=== PATIENT | male | born 1955 | race Caucasian/White ===

== ENCOUNTER 2019-01-12 01:37 | Outpatient (CLI) | payer MEDICARE, SELFPAY ==
[2019-01-12 11:10] LABS: ALT 28 U/L (12-78); AST 19 U/L (15-37); Albumin 3.8 g/dL (3.4-5.0); Alkaline Phosphatase 49 U/L (46-116); Anion Gap 7.6 mmol/L (3-11); BUN 16 mg/dL (7-18); Bilirubin, Total 0.7 mg/dL (0.2-1.0); CO2 28.4 mmol/L (21.0-32.0); CREATININE 1.03 mg/dL (0.70-1.30); Calcium 8.8 mg/dL (8.5-10.1); Calculated LDL 129; Chloride 103 mmol/L (98-107); Cholesterol 184 mg/dL (50-200); Glucose 96 mg/dL (70-100); HDL Cholesterol 37 mg/dL (40-60); Potassium 4.7 mmol/L (3.5-5.1); Sodium 139 mmol/L (136-145); Triglyceride 91 mg/dL (30-150)
== END 2019-01-12 01:57 ==
PROVIDERS: PCP Family Medicine; Visit Provider Family Medicine
DX: Z13.6 Encounter for screening for cardiovascular disorders (principal)
CPT/HCPCS: 36415; 80053; 80061; 83721

== ENCOUNTER 2020-01-27 03:45 | Outpatient (CLI) | payer MEDICARE, SELFPAY ==
[2020-01-27 08:01] LABS: HCT 50.8 % (40.0-50.0); HGB 16.8 g/dL (13.5-17.5); Mean Corp. HGB Concentration 33.1 g/dL (32.0-36.0); Mean Corpuscular Hemoglobin 33.7 pg (27.0-33.0); Mean Corpuscular Volume 101.8 fL (80-95); Mean Platelet Volume 9.2 fL (8.0-11.0); Platelet Count 244 x1000/uL (130-400); RBC 4.99 m/cumm (4.50-6.00); White Blood Cell Count 5.57 k/cumm (4.4-10.8)
[2020-01-27 09:52] LABS: ALT 32 U/L (16-63); AST 24 U/L (15-37); Albumin 4.1 g/dL (3.4-5.0); Alkaline Phosphatase 49 U/L (46-116); Anion Gap 8.8 mmol/L (3-11); BUN 17 mg/dL (7-18); Bilirubin, Total 0.6 mg/dL (0.2-1.0); CO2 29.2 mmol/L (21.0-32.0); CREATININE 1.12 mg/dL (0.70-1.30); Calcium 8.8 mg/dL (8.5-10.1); Chloride 102 mmol/L (98-107); Glucose 106 mg/dL (74-106); Potassium 4.7 mmol/L (3.5-5.1); Sodium 140 mmol/L (136-145); Total Protein 7.5 g/dL (6.4-8.2)
[2020-01-27 12:32] LABS: Calculated LDL 158 mg/dL (<100); Cholesterol 221 mg/dL (<200); HDL Cholesterol 44 mg/dL (40-60); Triglyceride 95 mg/dL (<150)
[2020-01-30 10:25] LABS: PSA, Screening 0.5 ng/mL (0.0-4.5)
== END 2020-01-27 04:05 ==
PROVIDERS: PCP Family Medicine; Visit Provider Family Medicine
DX: N52.9 Male erectile dysfunction, unspecified (principal); Z80.42 Family history of malignant neoplasm of prostate; Z12.5 Encounter for screening for malignant neoplasm of prostate
CPT/HCPCS: 36415; 80053; 80061; 84153; 85027

== ENCOUNTER 2021-01-28 03:06 | Outpatient (CLI) | payer MEDICARE, SELFPAY ==
[2021-01-28 12:40] LABS: Calculated LDL 144 mg/dL (<100); Cholesterol 193 mg/dL (<200); HDL Cholesterol 36 mg/dL (40-60); Triglyceride 69 mg/dL (<150)
== END 2021-01-28 03:07 | disposition home or self-care (01) ==
LOC: LOS 03:06
PROVIDERS: PCP Nurse Practitioner Family; Visit Provider Nurse Practitioner Family
DX: N52.9 Male erectile dysfunction, unspecified (principal); N40.0 Benign prostatic hyperplasia without lower urinary tract symptoms
CPT/HCPCS: 36415; 80061; 84154

== ENCOUNTER 2022-02-18 02:47 | Outpatient (CLI) | payer MEDICARE, SELFPAY ==
[2022-02-18 13:08] LABS: Calculated LDL 106 mg/dL (<100); Cholesterol 160 mg/dL (<200); HDL Cholesterol 39 mg/dL (40-60); Triglyceride 75 mg/dL (<150)
[2022-02-19 18:34] LABS: PSA, Screening 0.5 ng/mL (<=4.5)
== END 2022-02-18 02:48 | disposition home or self-care (01) ==
LOC: LOS 02:47
PROVIDERS: PCP Nurse Practitioner Family; Visit Provider Nurse Practitioner Family
DX: E78.5 Hyperlipidemia, unspecified (principal); R39.11 Hesitancy of micturition; N40.1 Benign prostatic hyperplasia with lower urinary tract symptoms; N52.9 Male erectile dysfunction, unspecified; Z12.5 Encounter for screening for malignant neoplasm of prostate
CPT/HCPCS: 36415; 80061; 84153

== ENCOUNTER 2022-04-11 16:23 | Outpatient (REF) | payer MEDICARE, SELFPAY ==
[2022-04-13 10:56] LABS: Campylobacter PCR Negative (Negative); Salmonella PCR Negative (Negative); Shiga Toxin PCR Negative (Negative); Shigella/Enteroinvasive Ecoli Negative (Negative)
== END 2022-04-11 16:24 | disposition home or self-care (01) ==
LOC: LBN 16:23
PROVIDERS: PCP Nurse Practitioner Family; Visit Provider Nurse Practitioner Family
DX: R19.7 Diarrhea, unspecified (principal)
CPT/HCPCS: 87505; 87177

== ENCOUNTER 2023-02-09 03:05 | Outpatient (CLI) | payer MEDICARE, SELFPAY ==
[2023-02-09 13:03] LABS: Calculated LDL 131 mg/dL (<100); Cholesterol 187 mg/dL (<200); HDL Cholesterol 39 mg/dL (40-60); Triglyceride 88 mg/dL (<150)
[2023-02-10 10:13] LABS: PSA, Screening 0.5 ng/mL (<=4.5)
== END 2023-02-09 03:06 | disposition home or self-care (01) ==
LOC: LOS 03:05
PROVIDERS: PCP Nurse Practitioner Family; Visit Provider Nurse Practitioner Family
DX: N40.1 Benign prostatic hyperplasia with lower urinary tract symptoms (principal); E78.5 Hyperlipidemia, unspecified
CPT/HCPCS: 36415; 80061; 84153

== ENCOUNTER 2023-12-29 05:11 | Outpatient (CLI) | payer MEDICARE, SELFPAY ==
[2023-12-29 12:31] LABS: Calculated LDL 99 mg/dL (<100); Cholesterol 156 mg/dL (<200); HDL Cholesterol 42 mg/dL (40-60); Triglyceride 76 mg/dL (<150)
[2023-12-29 13:19] LABS: Hemoglobin A1C 5.5 % (<5.7)
[2023-12-29 18:26] LABS: PSA, Screening 0.7 ng/mL (<=6.5)
== END 2023-12-29 05:12 | disposition home or self-care (01) ==
LOC: LOS 05:11
PROVIDERS: PCP Nurse Practitioner Family; Visit Provider Nurse Practitioner Family
DX: E78.5 Hyperlipidemia, unspecified (principal); N40.1 Benign prostatic hyperplasia with lower urinary tract symptoms; Z13.1 Encounter for screening for diabetes mellitus
CPT/HCPCS: 36415; 80061; 84153; 83036

== ENCOUNTER 2024-01-08 08:49 | Day surgery (SDC) | payer MEDICARE, SELFPAY ==
[2024-01-08 09:20] VITALS: BP 110/65; PULSE 61; RESP 16; TEMP 36.2; O2SAT 97
--- NOTE | 2024-01-08 09:40 | ANES.PREOP_ITS ---
General Info Date of Service Date Performed: 01/08/24 Height: 5 ft 10 in Weight: 84.368 kg Body Mass Index (BMI): 26.6 Surgical Procedure: Operation Date: 01/08/24 11:40 Proposed Procedure Side Surgeon p Cataract Extraction with IOL Implant Right Laci Holm MD Meds Allergies and Home Medications Allergies Allergy/AdvReac Type Severity Reaction Status Date / Time No Known Allergies Allergy Verified 01/08/24 10:03 Home Medication Medication Instructions Recorded multivitamin (Daily Multi-Vitamin 1 ea PO DAILY 08/21/14 tablet) ascorbic acid (vitamin C) 500 mg 2,000 mg PO DAILY 08/15/16 tablet (Vitamin C) cholecalciferol (vitamin D3) 50 2,000 unit PO DAILY 08/15/16 mcg (2,000 unit) capsule (D3-2000) coenzyme Q10 100 mg capsule 100 mg PO DAILY 01/11/21 levocetirizine 5 mg tablet (Xyzal) 5 mg PO DAILY 01/11/21 magnesium citrate 150 ml PO DAILY 12/25/23 simvastatin 20 mg tablet 20 mg PO DAILY #90 tabs 12/25/23 tadalafil 5 mg tablet 5 mg PO DAILY #30 tabs 12/25/23 tamsulosin 0.4 mg capsule (Flomax) 0.4 mg PO DAILY #90 caps 12/25/23 Current Visit Medications: Current Medications Generic Name Dose Route Start Last Admin Trade Name Freq PRN Reason Stop Dose Admin Acetaminophen 1,000 mg 01/08/24 06:00 Acetaminophen 500 Mg Tab PO 02/07/24 05:59 Q4H PRN PRN Balanced Salt Solution 500 ml 01/08/24 06:00 Balanced Salt Soln.-Plus 500 Ml Bag OP 02/07/24 05:59 DIRECTED MEET Miscellaneous Medication 0 ml 01/08/24 06:00 Prednisolone 1%, Moxifloxacin 0.5%, Bromfenac 0.09% 5ml Btl OD 02/07/24 05:59 DIRECTED MEET Miscellaneous Medication 0 ml 01/08/24 06:00 Tropicam./Phenyleph. (1/2.5%) 10 Ml Btl OD 02/07/24 05:59 DIRECTED MEET Tetracaine HCl 0 ml 01/08/24 06:00 Tetracaine 0.5% 4 Ml Btl OD 02/07/24 05:59 DIRECTED [facility] Active Problems Active Problems: Problem Status Onset Code Cortical age-related cataract, right eye H25.011 Nuclear age-related cataract, right eye H25.11 Left leg weakness R29.898 Hyperlipidemia E78.5 BPH (benign prostatic hyperplasia) N40.0 Macrocytosis without anemia D75.89 Erectile dysfunction N52.9 Tubular adenoma D36.9 Medical History Medical History Tubular adenoma Surgical History Surgical History Colonoscopy - MAC (12/18/17) L5-S1 Laminectomy Open Carpal Tunnel release B/L Tobacco Smoking/Tobacco Use Status: Former Tobacco Use Passive smoking exposure: No Second hand exposure: No Alcohol Alcohol Intake: former Substance Use Substance use: Daily Substance use type: marijuana Vital Signs and Lab Results Vital Signs Most Recent Vital Signs in EMR: Temp Pulse Resp BP Pulse Ox 36.2 C L 61 16 110/65 97 01/08/24 09:20 01/08/24 09:20 01/08/24 09:20 01/08/24 09:20 01/08/24 09:20 Lab Results Blood Type / Crossmatch: No Data to Display Complete Blood Count: No Data to Display Complete Metabolic Panel: Hemoglobin A1c 5.5 % (<5.7) 12/29/23 09:16 Liver Function Panel: No Data to Display Coagulation Panel: No Data to Display Cardiac Panel: No Data to Display Arterial Blood Gas: No Data to Display Venous Blood Gas: No Data to Display Pancreas Panel: No Data to Display Thyroid Panel: No Data to Display Infectious Disease: No Data to Display Blood Cultures: No Data to Display Toxicology Panel: No Data to Display Anesthesia Assessment and Plan Anesthesia History Personal History: No History of Anesthesia Complications Family History: No Family History of Anesthesia Complications Exercise Tolerance Exercise Tolerance: Metabolic Equivalents>4 Pertinent Negatives Pertinent Negatives: No Symptoms of GERD, No Major Cardiovascular Symptoms or Complaints, No Major Pulmonary Symptoms or Complaints and No History of CVA/TIA Cardiac & Pulmonary Exam Cardiac Exam: Normal S1/S2 Heart Sounds Pulmonary Exam: Clear Bilateral Breath Sounds Implantable Cardiac Device Does patient have a Pacemaker or an ICD?: No Airway Exam Known Difficult Airway: No Mallampati Class: 2 Mouth Opening: Normal (> 3cm) Thyromental Distance: Greater than 3 cm Neck Range of Motion: Full ROM Neck Circumference: Normal Teeth Condition: Normal Dentition ASA Classification ASA Score: ASA 2 Emergency Case?: No NPO Status NPO Status: NPO Clears >2 hours, Solids >8 hours Anesthesia Plan Resuscitation Status: Full Code Anesthesia Technique: MAC Anesthesia Airway Planned: Natural Airway Monitors Used: Standard Monitors
[2024-01-08 10:26] VITALS: BMI 26.6
[2024-01-08] MEDS: Povidone-Iodine Ophth 30 ML BTL (10:50)
[2024-01-08] MEDS: Tetracaine 0.5% 4 ML BTL OD (10:50)
[2024-01-08] MEDS: Duovisc Viscoelastic System EACH 1 EACH (10:57)
[2024-01-08] MEDS: Lidocaine 1% Pres-Free 5 ML VIAL (10:57)
[2024-01-08] MEDS: Balanced Salt Soln.-PLUS 500 ML BAG OP (10:57)
[2024-01-08 11:17] VITALS: BP 110/65; PULSE 61; RESP 16; TEMP 36.2; O2SAT 97
--- NOTE | 2024-01-08 11:17 | ROE_ITS ---
Date of service: 01/08/24 Time of Service: 11:18 Operative Note Operative Note DATE OF PROCEDURE: 02/25/21 PRE-OP DIAGNOSIS: Nuclear/cortical cataract, right eye POST-OP DIAGNOSIS: same PROCEDURE: Cataract extraction using phacoemulsification with intraocular lens implant, right eye SURGEON: Laci Holm ANESTHESIA TYPE: Local By Surgeon and MAC Refer to Anesthesia Record ESTIMATED BLOOD LOSS: 0 PATHOLOGY: none sent COMPLICATIONS: None Patient was transported to: same day Patient's condition: stable Implants: Te[employer]j Tecnis Eyhance [id number] Indications: Progressive visual loss due to cataract, right eye Procedure Description: CATARACT SURGERY OPERATIVE REPORT PREOPERATIVE DIAGNOSIS: 1. Nuclear/cortical cataract, right eye POSTOPERATIVE DIAGNOSIS: Same OPERATION: 1. Cataract extraction using phacoemulsification with posterior chamber intraocular lens implant, right eye. IOL: IOL Nut Process Helper/Model: Tej [employer] Tej Tecnis Eyhance DIB00 IOL Power: + 19.5 diopters IOL Serial Number: [id number] Optic Diameter: 6.0mm Haptic/Overall Diameter: 13.0mm PHACO INFO: YunierCaliper Life Sciencesurion Vision System with OZil and Active Fluidics Cumulative Dispersed Energy (CDE): 3.82 seconds SURGEON: Laci Holm MD, GEORGE ANESTHESIA: Monitored Anesthesia Care (MAC), with local sub-tenon's anesthetic infiltration COMPLICATIONS: None SPECIMENS: None INDICATIONS FOR PROCEDURE: The patient is a 68-year-old male with history of diminished visual acuity in his right eye secondary to the development of nuclear/cortical cataract. He is significantly symptomatic that he desires cataract surgery and attempt to improve and maximize his vision. The option of cataract surgery was offered to the patient and he wished to proceed. See office notes for detailed information. PROCEDURE: The correct surgical eye was identified and marked as the right eye and the pupil was dilated in the preoperative area using mydriatics and cycloplegics. The dilated pupil size was 7.0 mm. Oral sedation was administered in the form of an Imprimis MKO Melt (midazolam 3mg/ketamine 25mg/ondansetron 2mg).. The patient was brought to the operating room where cardiopulmonary monitoring was instituted and surgical time-out was performed, confirming the correct operative eye and IOL power. Topical anesthesia was administered and ophthalmic povidone-iodine 5% was instilled into the conjunctival fornices. The daniel-ocular area was prepped with Betadine 10% solution and draped in the usual sterile fashion for intraocular surgery, including an aperture drape. A Tegaderm transparent film dressing was cut in half and used to cover the lashes and lid margins. Care was taken to sequester the lashes and lid margins under the Tegaderm dressing. A lid speculum was placed between the lids of the operative eye and the Yunier LuxOR Revalia operating microscope was maneuvered into position. Scott scissors were then used to make a conjunctival buttonhole approximately 6mm posterior to the limbus in the inferonasal quadrant. Blunt dissection was carried out to expose bare sclera, and a blunt-tipped sub-tenon?s anesthesia cannula was introduced and passed posteriorly along the globe where non- preserved plain lidocaine was injected into posterior sub-Tenon?s space. A sideport knife was used to make a paracentesis port. Intraocular phenylephrine/lidocaine was injected into the anterior chamber. The anterior chamber was filled with viscoelastic. A keratome knife was used to construct a 2-plane clear corneal tunnel extending 2.0mm into clear cornea. A flap was raised on the anterior capsule and capsulorhexis forceps were used to complete a continuous curvilinear capsulorhexis of 5.0 mm. Balanced salt solution was then used to perform cortical cleaving hydrodissection and nuclear hydrodelineation until the lens could be freely rotated within the capsular bag. The lens nucleus was then disassembled and removed within the capsular bag and iris plane using phacoemulsification. Residual cortical material was removed using the I/A handpiece. The posterior capsule was carefully polished to remove as much residual lens epithelial cells as safely possible. The capsular bag was then inflated and the anterior chamber deepened with cohesive viscoelastic. The lens implant described above was inserted into the capsular bag using the Tej and Sumi Simplicity pre- loaded injector. A Kuglen hook was used to dial the IOL into position. Residual viscoelastic was then removed first from posterior to the IOL, then from the anterior chamber using the I/A handpiece. The lens implant was noted to center nicely within the capsular bag. The incisions were stromally hydrated, and the anterior chamber was reformed using BSS. Then 0.5cc of moxifloxacin 1.0mg/ml were injected into the capsular bag and anterior chamber. The incisions were checked with a Weck spear and found to be secure. Several drops of ophthalmic povidone-iodine 5% were then applied to the eye followed by two drops ocombination steroid/NSAID/antibiotic solution. The drapes were removed and a clear plastic protective eye shield was placed over the eye. The patient was then returned to Same Day Surgery in stable condition.
--- NOTE | 2024-01-08 11:18 | W.PM.DSUDISC ---
Date of service: 01/08/24 Time of Service: 11:18 Discharge Plan Disposition Patient Disposition: Home Discharge Details Attending Provider: Laci Holm Primary Care Provider: Ayden Hines Home Meds and New Rx's Prescriptions: No Action levocetirizine [Xyzal] 5 mg tablet 5 mg PO DAILY coenzyme Q10 100 mg capsule 100 mg PO DAILY magnesium citrate Solution 150 ml PO DAILY tamsulosin [Flomax] 0.4 mg capsule 0.4 mg PO DAILY Qty: 90 3RF tadalafil 5 mg tablet 5 mg PO DAILY Qty: 30 4RF Rx Instructions: take one tablet 30 minutes before sexual activity/maximum one dose per 24 hours simvastatin 20 mg tablet 20 mg PO DAILY Qty: 90 4RF multivitamin [Daily Multi-Vitamin] 1 EACH tablet 1 ea PO DAILY ascorbic acid (vitamin C) [Vitamin C] 500 MG tablet 2,000 mg PO DAILY cholecalciferol (vitamin D3) [D3-2000] 2,000 UNIT capsule 2,000 unit PO DAILY Discharge Instructions Stand Alone Forms: DSU Post-Op CataractChristophe (DSU) Discharge Orders Discharge Orders: Discharge Order (Routine); Ordered 01/08/24 Ordered By: Laci Holm DS: Diagnosis Discharge Diagnosis (1) Cortical age-related cataract, right eye: Status: Resolved (2) Nuclear age-related cataract, right eye: Status: Resolved
[2024-01-08 11:45] VITALS: BP 101/67; PULSE 63; RESP 16; TEMP 36.6; O2SAT 94
--- NOTE | 2024-01-08 11:57 | W.ANESPOSTOP ---
Postoperative Evaluation Date, Time and Location Date Performed: 01/08/24 Time Performed: 11:26 Patient Location: Day Surgery Unit Vital Signs Most Recent Imported Vital Signs: Most Recent Vital Signs Temp Pulse Resp BP Pulse Ox 36.6 C 63 16 101/67 94 01/08/24 11:45 01/08/24 11:45 01/08/24 11:45 01/08/24 11:45 01/08/24 11:45 Pain Score Most Recent Pain Score: Most Recent Pain Score Pain Level 0 01/08/24 11:45 Assessment Mental Status: Awake (Alert & Oriented to Patient Baseline) Airway and Respiratory Function: Patent airway with normal (patient baseline) respiratory exam Cardiovascular Function: Hemodynamically Stable Hydration Status: Adequately Hydrated Nausea & Vomiting: No Nausea or Vomiting Pain: Pt. Denies Any Pain Peripheral Nerve Block: Other (Local by Dr. Holm)
== END 2024-01-08 11:59 | disposition home or self-care (01) ==
LOC: SUR 08:50
PROVIDERS: PCP Nurse Practitioner Family; Visit Provider Ophthalmology
PROC: (CPT 66984; principal; 2024-01-08 11:30)
DX: H25.011 Cortical age-related cataract, right eye (principal); H25.11 Age-related nuclear cataract, right eye
CPT/HCPCS: 66984; 00123; V2632; J2003

== ENCOUNTER → 2024-03-29 09:10 | Outpatient (BNVA) | payer MEDICARE, SELFPAY | PROVIDERS: PCP Nurse Practitioner Family; Referring Provider Nurse Practitioner Family; Visit Provider Psychiatry & Neurology Neurology | DX: R29.898 Other symptoms and signs involving the musculoskeletal system (principal) | CPT/HCPCS: 95885; 95908; 99205 ==

== ENCOUNTER 2024-04-20 02:08 | Outpatient (CLI) | payer MEDICARE, SELFPAY ==
--- NOTE | 2024-04-20 08:00 | DI.MRI_ITS ---
Exam(s) MR BRAIN WO EXAM: MR BRAIN WO CLINICAL HISTORY: painless L leg atrophy,lt leg weakness,r29.898 TECHNIQUE: Multiplanar multisequence MRI of the brain was performed. COMPARISON: MR MR CERVICAL SPINE WO from 04/20/2024 FINDINGS: VENTRICLES AND EXTRA AXIAL SPACES: Normal in size and morphology for the patient's age. MIDLINE SHIFT: None. CEREBRAL PARENCHYMA: No focus of restricted diffusion to suggest acute infarct. No space-occupying le saud identified. Mild atrophy consistent with the patient's age. Minimal scattered foci of high sign al in the white matter consistent with sequela of chronic microvascular disease. HEMORRHAGE: None. BRAINSTEM/CEREBELLUM: Normal. VISUALIZED PARANASAL SINUSES/MASTOIDS:Clear. Vasculature: Normal flow void. PITUITARY GLAND: Unremarkable. ORBITS: Unremarkable. IMPRESSION: Unremarkable MRI of the brain. Chronic sinus disease. DATA REPOSITORY:
--- NOTE | 2024-04-20 09:00 | DI.MRI_ITS ---
Exam(s) MR LUMBAR SPINE WO EXAM: MR LUMBAR SPINE WO CLINICAL HISTORY: painless L leg weakness,lt leg weakness,r29.898. TECHNIQUE: Multiplanar multisequence MRI of the Lumbar spine was performed. COMPARISON: No exams were available for comparison FINDINGS: Bones: The last intervertebral disc space is designated the L5/S1 level for the numbering purpose of this ex amination. The vertebral body heights are well maintained. Alignment: Unremarkable. The marrow signal characteristics are unremarkable. On 13 millimeter circumscribed lesion in the le ft upper sacrum, likely a benign lesion. Bones scan could be considered for further evaluation. Cord: The conus tip ends at the T12 level. It is of normal size and signal intensity. T12-L1: No focal disc herniation is present. No central spinal canal stenosis.No neural foraminal st enosis. L1-2: No focal disc herniation is present. No central spinal canal stenosis.No neural foraminal sten osis. L2-3: No focal disc herniation is present. No central spinal canal stenosis.No neural foraminal jimmie nosis. L3-4: No focal disc herniation is present. No central spinal canal stenosis.No neural foraminal jimmie nosis. L4-5:Narrowing of the disc and endplate osteophytes are eccentric toward the right. Mild right neura l foraminal narrowing. No focal disc herniation is present. No central spinal canal stenosis. L5-S1: Loss of disc height, eccentric toward the left with left-sided osteophytes. Facet degenerativ e changes. Mild bilateral neural foraminal narrowingno focal disc herniation is present. No central spinal canal stenosis. The visualized SI joints and sacrum are unremarkable. Soft tissues: The paraspinal soft tissues are unremarkable. IMPRESSION: No evidence of disc herniation. Degenerative disc changes at L4-5 and L5 S1 cause mild neural foraminal narrowing. No central canal stenosis. 13 millimeter circumscribed lesion in the left upper sacrum is likely benign. Bone scan could be con sidered for further evaluation. DATA REPOSITORY:
--- NOTE | 2024-04-20 09:30 | DI.MRI_ITS ---
Exam(s) MR CERVICAL SPINE WO EXAM: MR CERVICAL SPINE WO CLINICAL HISTORY: painless L leg atrophy,lt leg weakness,r29.898 TECHNIQUE: Multiplanar multisequence MRI of the cervical spine was performed without intravenous con trast. COMPARISON: No exams were available for comparison FINDINGS: BONES: Vertebral body heights are maintained. Alignment is normal. Bone marrow signal intensity is wi thin normal limits. CERVICAL CORD: Craniovertebral junction is unremarkable. The cervical cord is normal size and signal intensity. SOFT TISSUES: Unremarkable. C2-3: No disc herniation or bulge is identified. No evidence of neural foraminal narrowing. No signi ficant central canal stenosis. C3-4: No disc herniation or bulge is identified. No evidence of neural foraminal narrowing. No signif icant central canal stenosis. C4-5: No disc herniation or bulge is identified. No evidence of neural foraminal narrowing. No signif icant central canal stenosis. C5-6: Mild loss of disc height. Endplate osteophytes projecting laterallycausing bilateral neural fo raminal narrowing. No significant central canal stenosis. C6-7: Mild loss of disc height. Endplate osteophytes projecting posterolaterally causing bilateral n eural foraminal narrowing. No significant central canal stenosis. C7-T1: No disc herniation or bulge is identified. No evidence of neural foraminal narrowing. No signi ficant central canal stenosis. IMPRESSION: No evidence of disc herniation. Normal cord signal. Degenerative disc changes cause bilateral neural foraminal narrowing at C5-6 and C6-7. DATA REPOSITORY:
== END 2024-04-20 02:28 ==
LOC: DI 02:08
PROVIDERS: PCP Nurse Practitioner Family; Visit Provider Psychiatry & Neurology Neurology
DX: M50.122 Cervical disc disorder at C5-C6 level with radiculopathy (principal); R29.898 Other symptoms and signs involving the musculoskeletal system
CPT/HCPCS: 70551; 72141; 72148

== ENCOUNTER 2024-04-26 02:41 | Outpatient (CLI) | payer MEDICARE, SELFPAY ==
[2024-04-26 12:41] LABS: Creatine Kinase 221 U/L (39-308)
== END 2024-04-26 02:42 | disposition home or self-care (01) ==
LOC: LOS 02:41
PROVIDERS: PCP Nurse Practitioner Family; Visit Provider Psychiatry & Neurology Neurology
DX: R29.898 Other symptoms and signs involving the musculoskeletal system (principal)
CPT/HCPCS: 36415; 82550

== ENCOUNTER → 2024-05-10 09:40 | Outpatient (BNVA) | payer MEDICARE, SELFPAY | PROVIDERS: PCP Nurse Practitioner Family; Referring Provider Nurse Practitioner Family; Visit Provider Psychiatry & Neurology Neurology | DX: M89.9 Disorder of bone, unspecified (principal); R29.898 Other symptoms and signs involving the musculoskeletal system | CPT/HCPCS: 99214 ==

== ENCOUNTER 2024-05-18 00:43 | Outpatient (CLI) | payer MEDICARE, SELFPAY ==
--- NOTE | 2024-05-18 07:00 | DI.NM_ITS ---
Exam(s) NM BONE SCAN WHOLE BODY GRP EXAM: NM BONE SCAN WHOLE BODY GRP CLINICAL HISTORY: sacral bone lesion,m89.9. TECHNIQUE: Injected Dose: 26.5 mCi Tc-99m MDP Delayed Images: 2-3 hours. Whole body images and spot views of the pelvis were performed. COMPARISON: MR MR LUMBAR SPINE WO from 04/20/2024 FINDINGS: Symmetric axial uptake. Bilateral renal excretion is identified. No focal area of intense suspicious uptake is seen. IMPRESSION: Negative bone scan. No areas of abnormal uptake in the sacrum. DATA REPOSITORY:
== END 2024-05-18 01:03 ==
LOC: DI 00:43
PROVIDERS: PCP Nurse Practitioner Family; Visit Provider Psychiatry & Neurology Neurology
DX: M89.9 Disorder of bone, unspecified (principal)
CPT/HCPCS: 78306

== ENCOUNTER 2025-01-03 02:32 | Outpatient (CLI) | payer MEDICARE, SELFPAY ==
[2025-01-03 12:37] LABS: BUN 19 mg/dL (7-18); CREATININE 1.1 mg/dL (0.70-1.30); Calcium 8.9 mg/dL (8.5-10.1); Calculated LDL 91 mg/dL (<100); Chloride 104 mmol/L (98-107); Cholesterol 144 mg/dL (<200); Estimated GFR 71.77 (mL/min/1.73m2); Glucose 102 mg/dL (74-106); HDL Cholesterol 40 mg/dL (>or=40); Potassium 4.6 mmol/L (3.5-5.1); Sodium 139 mmol/L (136-145); Triglyceride 67 mg/dL (<150)
[2025-01-03 14:30] LABS: Hemoglobin A1C 5.5 % (<5.7)
[2025-01-03 19:30] LABS: PSA, Screening 0.5 ng/mL (<=6.5)
== END 2025-01-03 02:33 | disposition home or self-care (01) ==
LOC: LOS 02:32
PROVIDERS: PCP Nurse Practitioner Family; Visit Provider Nurse Practitioner Family
DX: Z13.1 Encounter for screening for diabetes mellitus (principal); Z12.5 Encounter for screening for malignant neoplasm of prostate; Z13.6 Encounter for screening for cardiovascular disorders
CPT/HCPCS: 36415; 80048; 80061; 84153; 83036

== ENCOUNTER 2025-01-10 01:09 | Outpatient (CLI) | payer MEDICARE, SELFPAY ==
--- NOTE | 2025-01-10 06:45 | DI.US_ITS ---
Exam(s) US AAA SCREENING EXAM: US AAA SCREENING CLINICAL HISTORY: Screening for aaa,z13.6,FORMER TOBACCO USE COMPARISON: MR MR LUMBAR SPINE WO from 04/20/2024 FINDINGS: There is no evidence of abdominal aortic aneurysm. Maximum diameter of the abdominal aorta is 2.7 cm proximally and there is normal tapering of the abdominal aorta demonstrated distally. Diameter of the common iliac arteries is upper normal bilaterally. IMPRESSION: No evidence of abdominal aortic aneurysm. DATA REPOSITORY:
== END 2025-01-10 01:29 ==
LOC: DI 01:09
PROVIDERS: PCP Nurse Practitioner Family; Visit Provider Nurse Practitioner Family
DX: Z13.6 Encounter for screening for cardiovascular disorders (principal)
CPT/HCPCS: 76706

== ENCOUNTER → 2025-01-23 09:19 | Outpatient (BNVA) | payer MEDICARE, SELFPAY | PROVIDERS: PCP Nurse Practitioner Family; Referring Provider Nurse Practitioner Family; Visit Provider Psychiatry & Neurology Neurology | DX: R29.898 Other symptoms and signs involving the musculoskeletal system (principal); M89.9 Disorder of bone, unspecified; R53.83 Other fatigue | CPT/HCPCS: 99213 ==